=== PATIENT | male | born 1955 | race African-American/Black ===

== ENCOUNTER 2017-11-12 05:06 | Day surgery (SDC) | payer OTHER ==
[~2017-11-12] VITALS: Ht 175.3 cm; Wt 90.7 kg
--- NOTE | ~2017-11-12 | HP ---
PATIENT: TAMARA ESCALANTE MEDICAL RECORD: [id number] ACCOUNT: [id number] LOCATION:ROD : 59 ADMISSION DATE: 11/12/17 HISTORY AND PHYSICAL EXAMINATION CHIEF COMPLAINT: Pain. HISTORY OF PRESENT ILLNESS: The patient has a buttock induration abscess as well as what appeared to be sinus tracts. No known history of Crohn's disease. I am going to plan for an anal evaluation under anesthesia as well as excisional biopsy of the indurated infected areas involving the right buttock. There are probably about 6 or 7 what appeared to be sinus tracts. I told the patient that we may be able to primarily close the wound or may need to leave it open or place a wound VAC. He elects to proceed. PAST MEDICAL AND SURGICAL HISTORY: Hypertension, amputation of a finger. HOME MEDICINES: Amlodipine, aspirin, ibuprofen, latanoprost solution, simvastatin tablets. ALLERGIES: No known drug allergies. PHYSICAL EXAMINATION: GENERAL: The patient appears chronically ill, does not appear acutely ill. VITAL SIGNS: Reviewed. EARS: External ears appear normal. EYES: Extraocular movements are intact. NECK: Trachea is midline. CHEST: No intercostal retractions. PULMONARY: Nonlabored, no stridor. INTEGUMENT: As described above. IMPRESSION: Right buttock abscesses with sinus tracts and marked induration. PLAN: Anal evaluation under anesthesia. Excisional biopsy of right buttock mass. TRANSINT:[id number] Voice Confirmation ID: [id number] DOCUMENT ID: [id number] TONA MARTINEZ MD at 1034 CC: [id number] DICTATION DATE: 11/12/17912 PRINCIPAL LAW CLERK: 11/12/17 0931 [facility] 11/12/17 [id number] [place] [address]
--- NOTE | ~2017-11-12 | OP ---
PATIENT NAME: TAMARA ESCALANTE MEDICAL RECORD: [id number] :59 LOCATION:D.OPS ADMISSION DATE: SURGEON: TAHIR MARTINEZ MD DATE OF OPERATION: 11/12/2017 PREOPERATIVE DIAGNOSIS: Right buttock abscess with marked induration and fistulous tracts. POSTOPERATIVE DIAGNOSES: 1. Right buttock abscess with marked induration and fistulous tracts with very long rectal fistula. 2. Rectal mass, fixed. PROCEDURE: 1. Anal evaluation under anesthesia. 2. Excisional biopsy of right buttock mass, which the dimensions of the debridement, including margins, measures 15.2 cm in the cephalad caudad dimension and 7.0 cm in the lateral dimension. 3. Placement of wound VAC. SURGEON: Tahir Martinez MD COLLEGE SERVICE OFFICER: None. BLOOD LOSS: Minimal. ANESTHESIA: General. COMPLICATIONS: None. I believe the patient likely has a rectal carcinoma. The tract was really too long to advance a fistula probe and would this require a very lengthy Seton. I did not perform a flexible proctoscopy on this patient as he was not prepped. I have personally discussed the case with Dr. Childs and I will plan at the care home tomorrow to perform a colonoscopy. We are going to plan to bowel prep him this evening. OPERATIVE COURSE: The patient was conveyed to the operating room electively on 11/12/2017. General anesthesia was induced by the anesthesia staff. The patient was positioned prone. Through the use of double curvilinear incisions, I excised the skin and subcutaneous tissue as well as the abscesses and all the sinus tracts except for one. One sinus tract traveled towards the anus. The sinus tract exited the buttock about 10 cm from the anal verge. I inserted U-shaped anal retractors. Down through the sinus tract, I injected hydrogen peroxide and we did see a bubble out into the rectum indicating that the patient had a fistula. I did not have a fistula probe that was long enough to navigate through the fistula down into the rectum in order to place a Seton. I was able to perform a digital rectal examination and there was a fixed rectal mass that I could feel with my gloved finger. The fistulous tract contained gelatinous material. Meticulous hemostasis was achieved with electrocautery. I cut a wound VAC sponge to the size of the defect. Cellophane-type dressings were applied over the wound VAC. I then scored the cellophane type dressings. I bridged the wound VAC out on to the right buttock and placed it to suction. It held a good "raisin" indicating that there was no air leak. OPERATIVE REPORT [id number] TAMARA ESCALANTE The patient was then extubated and conveyed to post-anesthesia care unit where he was in stable condition. I discussed this case with Dr. Childs by phone. TRANSINT:[id number] Voice Confirmation ID: [id number] DOCUMENT ID: [id number] TAHIR MARTINEZ MD at 1034 CC: [id number] DICTATION DATE: 11/12/17916 PURCHASING ANALYST: 11/12/17 0934 [facility] 11/12/17 [address] [place] [address]
[2017-11-12] MEDS ORDERED: NORVASC5 MG PO (05:50)
[2017-11-12] MEDS ORDERED: BAYER CHEWABLE81 MG PO (05:50)
[2017-11-12] MEDS ORDERED: ZOCOR20 MG PO (05:51)
[2017-11-12] MEDS ORDERED: XALATAN 0.0052.5 ML EACH EYE (05:51)
[2017-11-12 06:14] LABS: BASOPHILS 0.3 % (0-2); EOSINOPHILS 4.8 % (0-7); HEMATOCRIT 28.1 % (42.0-54.0); HEMOGLOBIN 8.8 g/dL (13.5-17.5); IMMATURE GRANULOCYTES 0.3 % (0-5); LYMPHOCYTES 23.8 % (15-50); MCH 25.6 pg (26.0-34.0); MCHC 31.3 g/dL (31.0-37.0); MCV 81.7 fL (80.0-100.0); MONOCYTES 9.1 % (2-11); NEUTROPHILS 61.7 % (40-80); PLATELET COUNT 431 10x3/uL (130-400); RBC 3.44 10x6/uL (4.20-6.10); RDW 15.2 % (11.5-14.5); WBC 11.9 10x3/uL (4.8-10.8)
[2017-11-12 06:25] VITALS: BP 119/73; Ht 175.3 cm; Wt 90.7 kg
[2017-11-12 06:27] LABS: ANION GAP 7.7 mmol/L (8-16); CALCIUM 8.6 mg/dL (8.5-10.1); CARBON DIOXIDE 25.7 mmol/L (21.0-32.0); CREATININE - SERUM 1.3 mg/dL (0.6-1.3); POTASSIUM - SERUM 3.4 mmol/L (3.5-5.1)
== END 2017-11-12 11:35 | disposition home or self-care (01) ==
LOC: D.OPS 05:06
PROVIDERS: Anesthesiology
DX: K61.1 Rectal abscess (principal); I10 Essential (primary) hypertension; Z79.82 Long term (current) use of aspirin; Z79.1 Long term (current) use of non-steroidal anti-inflammatories (NSAID); Z79.899 Other long term (current) drug therapy; Z01.812 Encounter for preprocedural laboratory examination; C20 Malignant neoplasm of rectum

== ENCOUNTER 2017-12-27 20:20 | Inpatient (IN) | payer MEDICARE ==
[~2017-12-27] VITALS: Ht 175.3 cm; Wt 81.6 kg
--- NOTE | ~2017-12-27 | HP ---
PATIENT: TAMARA ESCALANTE MEDICAL RECORD: [id number] ACCOUNT: [id number] LOCATION:D.MS [facility]2223 : 59 ADMISSION DATE: 12/28/17 HISTORY AND PHYSICAL EXAMINATION DATE OF ADMISSION: 12/28/2017 CHIEF COMPLAINT: Cancer. HISTORY OF PRESENT ILLNESS: The patient has a rectal cancer. I have spoken to his family by phone. I have spoken to his physician, Dr. Dorado and Dr. Mccormack . The patient was recently paroled from shelter. I saw him in shelter and diagnosed his anorectal cancer at that time. The cancer is huge. It has presented in a very unusual manner through a fistulous that came out through his right buttock. I performed an excisional debridement and we identified that indeed he did have a malignancy coming out through a large fistulous tracts that exited not out through the perianal skin, but actually out through the buttock. The family has elected not to treat him aggressively. We do want to keep him comfortable during the dying process; however and that is the reason for the colostomy. It will be a double barrel colostomy to allow for decompression of the distal sigmoid colon and rectum as well as a proximal diversion of the fecal stream. The risks, possible complications, and alternatives to the procedure were discussed with the patient. He elects to proceed This is a history and physical addendum. The typed portion of the history and physical is in the chart. Please refer to it. It will include the past medical and surgical history, current medications, allergies, social history as well as review of systems and family history. REVIEW OF SYSTEMS: Really unobtainable from this patient who has mentation issues since undergoing a cerebrovascular accident. He is minimally verbal. PHYSICAL EXAMINATION: GENERAL: The patient appears acutely ill. He also appears chronically ill. VITAL SIGNS: Reviewed. EARS: External ears appear normal. EYES: Extraocular movements are intact. NECK: Trachea is midline. CHEST: No intercostal retractions. PULMONARY: Nonlabored, no stridor. ABDOMEN: Nontender. EXTREMITIES: No peripheral cyanosis. INTEGUMENT: There is an intertriginous rash. There is a large open wound involving the right buttock. BACK: Thoracic kyphosis is not present. LYMPHATICS: No lymphangitic streaking of the exposed extremities. PSYCHIATRIC: Anxious. NEUROLOGIC: Evidence of loss of higher cortical functioning. RECTAL: Reveals a firm fixed circumferential mass just within the anus. IMPRESSION AND PLAN: Anorectal cancer, nearly obstructing. PLAN: Decompressive colostomy performed laparoscopically, possible open procedure. He is going to undergo bowel prep tonight. HISTORY AND PHYSICAL [id number] TAMARA ESCALANTE TRANSINT:[id number] Voice Confirmation ID: [id number] DOCUMENT ID: [id number] TONA MARTINEZ MD at 1719 CC: [id number] DICTATION DATE: 12/28/171926 CLINICAL NURSING MANAGER: 12/28/172229 ADM IN [facility] [address] [id number]
--- NOTE | ~2017-12-27 | OP ---
PATIENT NAME: TAMARA ESCALANTE MEDICAL RECORD: [id number] :59 LOCATION:D.MS [facility]23 ADMISSION DATE:12/28/17 SURGEON: TONA MARTINEZ MD DATE OF OPERATION: 12/29/2017 PREOPERATIVE DIAGNOSIS: Nearly obstructing rectal cancer. POSTOPERATIVE DIAGNOSIS: Nearly obstructing rectal cancer. PROCEDURE: Laparoscopic double barrel colostomy placement. SURGEON: Tona Martinez MD SUPERVISOR PRESS ROOM: None. BLOOD LOSS: Minimal. ANESTHESIA: General. COMPLICATIONS: None. INDICATION: The patient has a nearly obstructing rectal cancer. Due to his frailty and a history of a severe cerebrovascular accident, the patient and his family have elected not to have the rectal cancer treated. In order to avoid him dying a miserable from a large bowel obstruction, we have elected to place a colostomy that will allow for decompression in an antegrade fashion as well as in a retrograde fashion. This will be a double barrel colostomy. I elected to perform this laparoscopically in order to have better access to the sigmoid colon. The patient was recently paroled and is going to be going to a half-way. DESCRIPTION OF PROCEDURE: The patient was conveyed to the operating room electively on 12/29/2017. General anesthesia was induced by the anesthesia staff. The abdomen was sterilely prepped and draped. A small skin dakota was accomplished in the left upper quadrant. A Veress needle was inserted through the skin dakota into the peritoneal cavity. CO2 insufflation was begun. Once a sufficient pneumoperitoneum had been achieved, a 5-mm trocar was inserted through an incision in the right lower quadrant. Under direct internal vision utilizing a television camera, another 5-mm trocar was inserted at this time in the left upper quadrant. During insertion of the Veress needle and all trocars, there appeared to have been no injury to the bowels, any intraperitoneal or retroperitoneal structures. I examined the sigmoid colon. It was quite redundant. I was able to grasp the sigmoid colon and moved over to the left lower quadrant. This appeared to be the mid sigmoid colon. I then went around to the left side of the patient and made a circular defect in the left lower quadrant. I excised the subcutaneous adipose tissue from within the circular defect. I dissected down to the anterior fascia. A cruciate incision was accomplished in the anterior fascia. I then divided the muscle down to the peritoneal cavity. I entered the peritoneal cavity and I identified the sigmoid colon which was still being grasped with the laparoscopic Angela grasper. I brought this out through the abdominal wall defect. A window was created in the mesentery of the sigmoid colon. I shortened a red rubber Olguin drain and brought through this mesenteric defect. I then sutured the red rubber Olguin catheter to the skin OPERATIVE REPORT [id number] TAMARA ESCALANTE on both sides with a 2-0 silk. I performed a colotomy. I sutured the edges of the colotomy to the surrounding skin with 3-0 Vicryls. Both trocars were then removed. The trocar sites were closed with interrupted intracuticular 3-0 Vicryls. A stomal appliance was applied and then sterile dressings. The patient was then extubated and conveyed to the post-anesthesia care unit. I went out and spoke to the patient's family and we again reviewed the plan, which is for the patient to go to a half-way and then likely will transition into hospice. TRANSINT:[id number] Voice Confirmation ID: [id number] DOCUMENT ID: [id number] TONA MARTINEZ MD at 1518 CC: [id number] DICTATION DATE: 12/29/171807 MEETING FACILITATOR: 12/29/171927 DIS IN 12/30/17 [facility] [address] [place] [address]
[~2017-12-27 20:20] MED LIST: BAYER CHEWABLE81 MG PO; NORVASC5 MG PO; XALATAN 0.0052.5 ML EACH EYE; ZOCOR20 MG PO
[2017-12-28 16:52] VITALS: BP 137/63
[2017-12-28 22:21] VITALS: BP 128/67
[2017-12-29 01:10] VITALS: BP 134/68
[2017-12-29 05:03] VITALS: BP 156/84
[2017-12-29 08:09] VITALS: BP 155/78
[2017-12-29 08:57] VITALS: BMI 26.6
[2017-12-29 11:48] VITALS: BP 147/76
[2017-12-29 13:05] VITALS: Ht 175.3 cm; Wt 81.6 kg
[2017-12-29 15:30] VITALS: BP 127/73
[2017-12-29 21:24] VITALS: BP 144/75
[2017-12-30 06:20] VITALS: BP 154/74
== END 2017-12-30 08:27 | DRG 331 ==
LOC: D.MS 20:20
PROVIDERS: Surgery
PROC: 0D1N4Z4 Bypass Sigmoid Colon to Cutaneous, Percutaneous Endoscopic Approach (ICD-10-PCS; principal; 2017-12-29 10:00)
DX: C21.8 Malignant neoplasm of overlapping sites of rectum, anus and anal canal (principal); Z86.73 Personal history of transient ischemic attack (TIA), and cerebral infarction without residual deficits